=== PATIENT | female | born 1950 | race Two or more races ===

== ENCOUNTER 2016-07-03 07:49 | Day surgery (SDC) | payer MEDICARE, MEDICAID ==
[~2016-07-03 07:49] MED LIST: FENTANYL 250 MCG/5 ML AMP IV PRN; LACTATED RINGERS 1,000 ML IV SCH; LIDOCAINE Viscous 2% 15 ML UDCUP PO PRN; MIDAZOLAM HCL 5 MG/5 ML VIAL IV PRN
[2016-07-03] MEDS ORDERED: FENTANYL 100 MCG/2 ML VIAL ONE (07:55)
[2016-07-03] MEDS ORDERED: IV START KIT ONE (07:59)
--- NOTE | 2016-07-05 11:00 | SURGPATH ---
[facility] [address] [place] [id number] Patient Name: OTTO THAKUR MR#: [id number] : 1950 Gender: F Specimen #: [id number] Collected: 07/03/2016 Received: 07/04/2016 Reported: 07/05/2016 Submitting Phys: ANUM LAFLEUR Copy To Phys: [facility] Clinical History / Pre-Operative Diagnosis: EPIGASTRIC PAIN WITH HEARTBURN AND WEIGHT LOSS; FAMILY HISTORY OF GASTRIC CA; RULE OUT GIARDIA, CELIAC SPRUE AND GASTRITIS Specimen Source / Surgical Procedure Performed: #1-DUODENAL BIOPSY; #2-ANTRAL BIOPSY Interpretation: 1. DUODENUM, BIOPSY: - SMALL BOWEL MUCOSA WITH NO DIAGNOSTIC ABNORMALITY 2. STOMACH, ANTRUM, BIOPSY: - HELICOBACTER GASTRITIS Electronically Signed Out Natalee Allison M.D. Gross Description: #1 The specimen is received in a formalin filled container labeled with the patient's name and "duodenal biopsy". Three hussein-garcia biopsies are 0.3, 0.4 and 0.5 cm. Totally embedded in cassette #1. #2 The specimen is received in a formalin filled container labeled with the patient's name and "antral biopsy". Two hussein-garcia biopsies are 0.4 and 0.5 cm. Totally embedded in cassette #2. Jack Flores Microscopic Description: 1. Sections show fragments of small bowel mucosa with long and well preserved villous processes. There is no significant inflammation and lymphocytes are not increased within the epithelium. No infectious organisms are identified and there is no dysplasia. 2. Sections show fragments of gastric mucosa with chronic active inflammatory infiltrate. Helicobacter organisms are seen within crypts, but there is no intestinal metaplasia or dysplasia. 1: [id number] 2: 29596 B96.81 K29.20
== END 2016-07-03 09:51 | disposition home or self-care (01) ==
LOC: SDC 07:49
PROVIDERS: ATTEND Internal Medicine Gastroenterology
PROC: 0DB68ZX Excision of Stomach, Via Natural or Artificial Opening Endoscopic, Diagnostic (ICD-10-PCS; principal; 2016-07-03)
PROC: 0DB98ZX Excision of Duodenum, Via Natural or Artificial Opening Endoscopic, Diagnostic (ICD-10-PCS; 2016-07-03)
DX: K29.00 Acute gastritis without bleeding (principal); B96.81 Helicobacter pylori [H. pylori] as the cause of diseases classified elsewhere; K29.80 Duodenitis without bleeding; Z80.0 Family history of malignant neoplasm of digestive organs; E78.5 Hyperlipidemia, unspecified; E11.9 Type 2 diabetes mellitus without complications; Z79.84 Long term (current) use of oral hypoglycemic drugs; M79.1 Myalgia; G89.29 Other chronic pain; Z79.82 Long term (current) use of aspirin
CPT/HCPCS: 43239; J3010; J2250; A9270; J7120